=== PATIENT | male | born 1965 | race Caucasian/White ===

== ENCOUNTER → 2017-10-18 12:40 | Outpatient (CLI) | payer OTHER, SELFPAY ==
[2017-10-18 13:17] LABS: Blood Urea Nitrogen 21 mg/dL (7-18); Creatinine,Serum 1.17 mg/dL (0.70-1.30); Estimated Glomerular Filt Rate 65 ml/min (>60); GFR (African American) 79 ML/MIN (>60)
--- NOTE | 2017-10-18 13:23 | CT_ITS ---
CT chest w con HISTORY: Follow-up lung nodule ITS.REASON: PULMONARY NODULES ORDERING PHYSICIAN: Sam Mckeon MD PATIENT AGE: 51 years COMPARISON: None TECHNIQUE: Axial images obtained following the administration of 75 mL of Isovue 370 . Sagittal, and coronal reformatted images are also generated and reviewed. All CT scans at the facility use one or more dose reduction, viz: automated exposure control, ma/kV adjustment per patient size (including targeted exams where dose is matched to indication, i.e. head), or iterative reconstruction technique. FINDINGS: Scattered small nodes are present in the axilla. There are a few small mediastinal and hilar nodes not significantly changed. Normal heart size. No evidence of pericardial effusion Multiple pulmonary nodules are once again noted are the largest nodule is in the right upper lobe anteriorly in the subpleural region. This nodule measures 13 x 9 mm previously 11 x 7 mm. Other smaller nodules are noted and unchanged. Scattered fibrotic changes are present with chronic coarsening of the bronchovascular markings. A 6 mm subpleural nodules present in the left upper lobe posteriorly unchanged no obvious new nodules. No effusions or infiltrates. There is a 4 mm nodule in the right apex unchanged. Upper abdominal images are unremarkable. There is mild wedging of T12 age indeterminate. This was not apparent on 313. The most recent chest CT CT did not cover this region. IMPRESSION: 1. Multiple noncalcified pulmonary nodules. The largest nodules in the right upper lobe anteriorly at 13 x 9 mm slightly larger compared to the previous exam measuring 11 x 7 mm. Suggest PET/CT for further evaluation. 2. Chronic coarsening of bronchovascular markings with some prominence of the interstitium consistent with COPD or chronic peribronchial inflammatory changes. 3. Mild wedging of T12 vertebral body age indeterminate
== END ==
PROVIDERS: Family Provider Internal Medicine Adolescent Medicine; PCP Internal Medicine Adolescent Medicine; Visit Provider Internal Medicine Adolescent Medicine
DX: R91.1 Solitary pulmonary nodule (principal)
CPT/HCPCS: 36415; 71260; 82565; 84520; Q9967